=== PATIENT | female | born 1965 | race Caucasian/White ===

== ENCOUNTER 2021-07-10 13:25 | Emergency (ER) | payer OTHER ==
[~2021-07-10] VITALS: Ht 154.9 cm; Wt 63.5 kg
--- NOTE | 2021-07-10 13:47 | NUR ---
PT BIBS FROM HOME C/O FEVER, VOMITING, DIARRHEA, ABDOMINAL PAIN SINCE TESTED COVID POSITIVE 10DAYS AGO, TEMP 99.8F UPON ARRIVAL, CANNOT KEEP ANYTHING DOWN. PT A/OX4.TOLERATING R/A WELL WITH NO SOB.
[2021-07-10] MEDS ORDERED: KETOROLAC TROMETHAMINE 15 MG/ML VIAL ONE (14:30)
[2021-07-10] MEDS ORDERED: ONDANSETRON HCL/PF 4 MG/2 ML VIAL IVP ONE (14:30)
[2021-07-10] MEDS ORDERED: KETOROLAC TROMETHAMINE INJ 30 MG/ML VIAL IV ONE (14:30)
[2021-07-10] MEDS ORDERED: ONDANSETRON HCL/PF 4 MG/2 ML VIAL ONE (14:30)
[2021-07-10] MEDS ORDERED: IV NS 0.9% 1,000 ML BAG IV ONE (14:30)
--- NOTE | 2021-07-10 14:36 | NUR ---
PT TAKEN TO CT VIA W/C
--- NOTE | 2021-07-10 14:43 | NUR ---
PT BACK FROM CT
--- NOTE | 2021-07-10 15:00 | NUR ---
blood sample obtained and sent to lab
--- NOTE | 2021-07-10 15:07 | NUR ---
covid sample obtained and sent to lab
[2021-07-10 15:14] LABS: BASOPHILS % (AUTO) 0.3 % (0.0-2.0); HEMATOCRIT 39 % (33-45); HEMOGLOBIN 12.6 g/dL (11.5-14.8); LYMPHOCYTES # (AUTO) 0.4 K/uL (0.8-4.8); LYMPHOCYTES % (AUTO) 12.9 % (20.0-44.0); MEAN CORPUSCULAR HGB CONC 32 g/dl (31.0-36.0); MEAN CORPUSCULAR VOLUME 84 fL (82-100); MONOCYTES # (AUTO) 0.1 K/uL (0.1-1.30); MONOCYTES % (AUTO) 4.1 % (2.0-12.0); NEUTROPHILS # (AUTO) 2.6 K/uL (1.8-8.9); NEUTROPHILS % (AUTO) 82.7 % (43.0-81.0); PLATELET COUNT (AUTO) 129 K/uL (150-450); RED BLOOD CELL COUNT(AUTO) 4.61 MIL/uL (4.0-5.2); WHITE BLOOD COUNT (AUTO) 3.1 K/uL (4.3-11.0)
[2021-07-10 15:37] LABS: CALCIUM, SERUM 8.3 mg/dL (8.5-10.1); CREATININE 0.9 mg/dL (0.6-1.3); POTASSIUM 3.1 mmol/L (3.5-5.1)
[2021-07-10 15:42] LABS: ALBUMIN 3.2 g/dL (3.4-5.0); BILIRUBIN,DIRECT 0.1 mg/dL (0.0-0.2); BILIRUBIN,TOTAL 0.3 mg/dL (0.2-1.0); TOTAL PROTEIN, SERUM 7.1 g/dL (6.4-8.2)
--- NOTE | 2021-07-10 16:23 | NUR ---
PT AMBULATED TO RESTROOM
[2021-07-10] MEDS ORDERED: IBUP-1957 PO (16:52)
[2021-07-10] MEDS ORDERED: ONDA4TAB11 PO (16:52)
--- NOTE | 2021-07-10 17:46 | NUR ---
Patient discharged to home in stable condition. Written and verbal after care instructions given. Patient verbalizes understanding of instruction.
--- NOTE | 2021-07-10 17:46 | NUR ---
IV removed. Catheter intact and site benign. Pressure and 4x4 applied to site. No bleeding noted.
[2021-07-10 17:49] VITALS: BP 129/76
== END 2021-07-10 17:50 | disposition home or self-care (01) ==
LOC: ER 13:30
DX: K80.70 Calculus of gallbladder and bile duct without cholecystitis without obstruction (principal); R91.8 Other nonspecific abnormal finding of lung field; Z20.822 Contact with and (suspected) exposure to COVID-19; N13.30 Unspecified hydronephrosis
CPT/HCPCS: 36415; 74176; 76705; 80048; 80076; 83690; 85025; 87426; 96361; 96374; 96375; 99285; C9803; J1885; J2405; J7030